=== PATIENT | female | born 1945 | race Two or more races ===

== ENCOUNTER 2022-01-20 06:08 | Inpatient (IN) | payer OTHER ==
[2022-01-20] VITALS (11 sets, daily range): BP systolic 78–131; BP diastolic 41–73
[~2022-01-20] VITALS: Ht 165.1 cm; Wt 68.5 kg
[~2022-01-20 06:08] MED LIST: ATOR20TA PO; [UNRECOGNIZED DRUG - CODE] PO
[2022-01-20] MEDS ORDERED: BUPIVACAINE W/ EPINEPH 0.25% INJ 50ML MDV ONE (06:48)
[2022-01-20] MEDS ORDERED: TRANEXAMIC ACID 20 ML ONE (06:48)
[2022-01-20] MEDS ORDERED: VANCOMYCIN HCL 1000 MG VL ONE (06:50)
[2022-01-20] MEDS ORDERED: KETOROLAC TROMETH 30 MG/ML 1ML VIAL ONE ×2 (06:53→08:09)
[2022-01-20] MEDS ORDERED: ceFAZolin 1GM/50ML 100 ML IV ONE (06:54)
[2022-01-20] MEDS ORDERED: ACETAMINOPHEN IV 100 ML IV ONE (06:54)
[2022-01-20] MEDS: ACETAMINOPHEN IV 1000 MG/100ML (10MG/ML) IV ONE ×2 (07:00→07:15)
[2022-01-20] MEDS: CELECOXIB 100 MG CAP PO ONE ×2 (07:00→07:15)
[2022-01-20] MEDS: PREGABALIN CAPSULE 75 MG CAP PO ONE ×2 (07:00→07:15)
[2022-01-20] MEDS ORDERED: MORPHINE SULF PF 5 MG/10 ML VIAL ONE (07:06)
[2022-01-20] MEDS ORDERED: SUCCINYLCHOLINE CHLORIDE 20 MG/ML 10ML VIAL IV ONE (07:07)
[2022-01-20] MEDS ORDERED: BUPIVACAINE 0.5% P/F INJ 10 ML VIAL ONE (07:07)
[2022-01-20] MEDS ORDERED: MIDAZOLAM HCL 2MG/2ML 2ml VIAL (1mg/ml) ONE (07:23)
[2022-01-20] MEDS ORDERED: fentaNYL CITRATE 100 MCG/2 ML VL ONE (07:23)
[2022-01-20] MEDS ORDERED: ONDANSETRON HCL 4 MG/2 ML VIAL ONE (07:24)
[2022-01-20] MEDS ORDERED: PHENYLEPHRINE HCL 10 MG/ML VL ONE (07:24)
[2022-01-20] MEDS ORDERED: ePHEDrine SULFATE 50 MG/ML AMP ONE (07:24)
[2022-01-20] MEDS ORDERED: PROPOFOL 10 MG/ML 20 ML IV ONE (07:24)
[2022-01-20] MEDS ORDERED: GLYCOPYRROLATE 0.2 MG/ML 1ML VIAL ONE (07:24)
[2022-01-20] MEDS ORDERED: LIDOCAINE 2% (LOCAL ANESTH.) PF 5ml SDV ONE (08:09)
[2022-01-20] MEDS ORDERED: DexAMETHasone SOD PHOS 10MG/1ML VIAL INJ ONE (08:09)
[2022-01-20] MEDS ORDERED: CALCIUM CHLOR(10%) 100MG/ML 10ML SYRINGE IV ONE (08:44)
[2022-01-20] MEDS ORDERED: HYDROmorphone HCL 2 MG/ML VL/or syr IV PRN (09:15)
[2022-01-20] MEDS ORDERED: ONDANSETRON HCL 4 MG/2 ML VIAL IV PRN ×2 (09:15→09:45)
[2022-01-20] MEDS ORDERED: BISACODYL 5 MG EC TAB PO PRN (09:15)
[2022-01-20] MEDS ORDERED: ceFAZolin 1GM/50ML 50 ML IV SCH (09:15)
[2022-01-20] MEDS ORDERED: MORPHINE SULFATE INJ 2 MG/ml SYRG IV PRN (09:15)
[2022-01-20] MEDS ORDERED: NITROGLYCERIN 0.4 MG SL TAB SL PRN (09:15)
[2022-01-20] MEDS ORDERED: diphenhdrAMINE HCL 50 MG/1 ML VL IV PRN (09:45)
[2022-01-20] MEDS ORDERED: DexAMETHasone SOD PHOS 10MG/1ML VIAL INJ IV PRN (09:45)
[2022-01-20] MEDS ORDERED: NALOXONE HCL 0.4 MG/ML VIAL IV PRN ×2 (09:45)
[2022-01-20] MEDS: BUDESONIDE 3 MG PO SCH (10:00)
[2022-01-20] MEDS: ATORVASTATIN 20 MG TAB PO SCH (10:00)
[2022-01-20] MEDS: DOCUSATE SOD 100 MG CAP PO SCH ×2 (10:00→14:00)
[2022-01-20 10:34] LABS: Albumin 2.9 g/dL (3.4-5.0); BUN/Creatinine Ratio 20.9; Calcium 9.2 mg/dL (8.5-10.1); Phosphorus 3.5 mg/dL (2.5-4.90); Potassium 3.7 mmol/L (3.5-5.1)
[2022-01-20] MEDS: ceFAZolin 1GM/50ML 50 ML IV SCH ×2 (14:44→20:00)
[2022-01-20] MEDS: ONDANSETRON HCL 4 MG/2 ML VIAL IV PRN ×2 (14:45→18:58)
[2022-01-20 17:14] LABS: Basophils # (auto) 0 10 ^3/uL (0-0.2); Basophils % (auto) 0.2 % (0.0-2.0); Eosinophils # (auto) 0 10 ^3/uL (0-0.8); Hematocrit 36.1 % (36.0-46.0); Hemoglobin 11.7 g/dL (12.2-16.2); Lymphocytes # (auto) 0.4 10 ^3/uL (0.4-5.4); Lymphocytes % (auto) 5.4 % (10.0-50.0); Mean Corpuscular Hemoglobin 31.5 pg (28.0-32.0); Mean Corpuscular Hgb Conc. 32.4 g/dL (32.0-36.0); Mean Corpuscular Volume 97.3 fL (80.0-100.0); Monocytes # (auto) 0.2 10 ^3/uL (0-1.3); Monocytes % (auto) 3.1 % (0.0-12.0); Neutrophils # (auto) 6.4 10 ^3/uL (1.6-8.6); Neutrophils % (auto) 91.3 % (37.0-80.0); Red Blood Cells 3.71 10^6/uL (4.0-5.20); Red Cell Distribution Width 14.2 % (11.8-14.3); White Blood Cell 7.1 10^3/uL (4.4-10.8)
[2022-01-20] MEDS: LACTATED RINGER'S 1,000 ML IV SCH ×2 (18:46→18:58)
[2022-01-20] MEDS: SODIUM CHLOR 0.9% PF (SALINE LOCK) 10ML VIAL/SYR IV SCH ×2 (18:48→21:42)
[2022-01-20] MEDS: ENOXAPARIN SOD 40 MG/0.4 ML SYRINGE SC SCH (18:58)
[2022-01-21] VITALS (14 sets, daily range): BP systolic 83–103; BP diastolic 35–58
[2022-01-21] MEDS: ceFAZolin 1GM/50ML 50 ML IV SCH (02:00)
[2022-01-21] MEDS: SODIUM CHLOR 0.9% PF (SALINE LOCK) 10ML VIAL/SYR IV SCH ×2 (06:35→22:00)
[2022-01-21] MEDS: LACTATED RINGER'S 1,000 ML IV SCH (06:35)
[2022-01-21 06:55] LABS: Hematocrit 27.1 % (36.0-46.0); Hemoglobin 9.1 g/dL (12.2-16.2)
[2022-01-21 07:27] LABS: Albumin 2.6 g/dL (3.4-5.0); BUN/Creatinine Ratio 32.3; Bilirubin, Total 0.5 mg/dL (0.2-1.0); Calcium 8.3 mg/dL (8.5-10.1); Potassium 4.6 mmol/L (3.5-5.1); Total Protein 4.4 g/dL (6.4-8.2)
[2022-01-21] MEDS: ENOXAPARIN SOD 40 MG/0.4 ML SYRINGE SC SCH (10:30)
[2022-01-21] MEDS: DOCUSATE SOD 100 MG CAP PO SCH ×2 (10:31→22:02)
[2022-01-21] MEDS: ATORVASTATIN 20 MG TAB PO SCH (10:31)
[2022-01-21] MEDS: BUDESONIDE 3 MG PO SCH (12:29)
[2022-01-21] MEDS ORDERED: SODIUM CHLORIDE 0.9% 1,000 ML IV ONE (13:15)
[2022-01-21] MEDS: HYDROcodone-ACET 5/325MG TAB PO PRN (19:46)
[2022-01-21] MEDS: KETOROLAC TROMETH 30 MG/ML 1ML VIAL IV PRN (23:14)
[2022-01-22 05:00] VITALS: BP 86/40
[2022-01-22] MEDS: SODIUM CHLOR 0.9% PF (SALINE LOCK) 10ML VIAL/SYR IV SCH ×3 (05:42→21:47)
[2022-01-22] MEDS: HYDROcodone-ACET 5/325MG TAB PO PRN (06:29)
[2022-01-22 06:30] LABS: Hematocrit 27.4 % (36.0-46.0); Hemoglobin 9.4 g/dL (12.2-16.2)
[2022-01-22 09:00] VITALS: BP 87/42
[2022-01-22] MEDS: SODIUM CHLORIDE 0.9% 1,000 ML IV SCH ×2 (09:06→21:51)
[2022-01-22] MEDS: ENOXAPARIN SOD 40 MG/0.4 ML SYRINGE SC SCH (09:06)
[2022-01-22] MEDS: ATORVASTATIN 20 MG TAB PO SCH (09:06)
[2022-01-22] MEDS: DOCUSATE SOD 100 MG CAP PO SCH ×2 (09:06→21:47)
[2022-01-22] MEDS: BUDESONIDE 3 MG PO SCH (09:06)
[2022-01-22 13:00] VITALS: BP 82/35
[2022-01-22 15:00] VITALS: BP 92/30
[2022-01-22 17:00] VITALS: BP 101/45
[2022-01-22] MEDS ORDERED: diphenhdrAMINE HCL 25 MG CAP PO ONE (20:45)
[2022-01-22] MEDS ORDERED: guaiFENesin-DM 100/10mg/5ml SYR PO PRN (20:45)
[2022-01-22] MEDS: KETOROLAC TROMETH 30 MG/ML 1ML VIAL IV PRN (20:56)
[2022-01-22 22:00] VITALS: BP 108/42
[2022-01-23 05:00] VITALS: BP 121/80
[2022-01-23 06:04] LABS: Hematocrit 24.6 % (36.0-46.0); Hemoglobin 8.3 g/dL (12.2-16.2)
[2022-01-23] MEDS: SODIUM CHLOR 0.9% PF (SALINE LOCK) 10ML VIAL/SYR IV SCH (06:09)
[2022-01-23 09:00] VITALS: BP 120/51
[2022-01-23] MEDS: ATORVASTATIN 20 MG TAB PO SCH (10:13)
[2022-01-23] MEDS: ENOXAPARIN SOD 40 MG/0.4 ML SYRINGE SC SCH (10:13)
[2022-01-23] MEDS: BUDESONIDE 3 MG PO SCH (10:13)
[2022-01-23] MEDS: DOCUSATE SOD 100 MG CAP PO SCH (10:13)
[2022-01-23] MEDS: SODIUM CHLORIDE 0.9% 1,000 ML IV SCH (11:25)
[2022-01-23 13:06] VITALS: BP 118/52
== END 2022-01-23 13:16 | disposition home or self-care (01) | DRG 470 ==
LOC: SUR 06:08 → OVERFLOW 09:14 → TELE 09:56 → TELE-CENTR 14:13
PROVIDERS: ADMIT Orthopaedic Surgery Adult Reconstructive Orthopaedic Surgery; ATTEND Orthopaedic Surgery Adult Reconstructive Orthopaedic Surgery
PROC: 8E0YXBZ Computer Assisted Procedure of Lower Extremity (ICD-10-PCS; 2022-01-20)
PROC: 0SR90JZ Replacement of Right Hip Joint with Synthetic Substitute, Open Approach (ICD-10-PCS; principal; 2022-01-20 07:22)
DX: M16.11 Unilateral primary osteoarthritis, right hip (principal); Z20.822 Contact with and (suspected) exposure to COVID-19
CPT/HCPCS: 36415; 72170; 73501; 80053; 80069; 85014; 85018; 85025; 85049; 86850; 86900; 86901; 97110; 97116; 97163; 97530; G0378; J0131; J0330; J0690; J1100; J1885; J2001; J2250; J2405; J2704; J3490